=== PATIENT | male | born 1990 | race Caucasian/White ===

== ENCOUNTER 2023-11-23 06:48 | Emergency (ER) | payer OTHER ==
--- NOTE | 2023-11-23 07:03 | ED Physician Documentation ---
PD HPI ABD PAIN - Stated complaint Stated Complaint: LOWER BACK PX, - Chief complaint Chief Complaint: Abd Pain - History obtained from History obtained from: Patient - History of Present Illness Timing - onset: How many days ago (4) Timing - duration: Days (4) Timing - details: Gradual onset (with gradual increase. Initially thought it was muscular back pain, but not positional. Has worsened considerably since yesterday. Some worse with certain movements. Not improved with rest, heat, NSAIDs, muscle relaxants.), Constant Quality: Aching, Dull, Pain Location: Other (right upper lumbar area) Radiation: Other (moving to right low abd and some feeling of right testicular pain without tenderness to testicle.) Associated symptoms: Nausea, Other (he is now noting area of decreased sensation to touch right lower abd to anterior thigh without skin pain nor rash.). No: Fever, Vomiting, Diarrhea, Dysuria Review of Systems Constitutional: denies: Fever, Chills PD PAST MEDICAL HISTORY - Past Medical History Past Medical History: Yes Cardiovascular: Hypertension Other Past Medical History: cervical radiculopathy and lower back pain - Past Surgical History Ortho: Other HEENT: Tonsil/Adenoidectomy, Other - Present Medications Home Medications: Ambulatory Orders Medication Instructions Recorded Confirmed Fluoxetine HCl [Prozac] 30 mg PO DAILY 11/23/23 11/23/23 Gabapentin [Neurontin] 300 mg PO DAILY 11/23/23 11/23/23 Lidocaine Patch 5% [Lidoderm Patch] 1 patch TOP DAILY PRN #10 patch 11/23/23 Meloxicam [Mobic] 7.5 mg PO BID 10 Days #20 tablet 11/23/23 Oxycodone HCl/Acetaminophen 1 each PO Q6H PRN #20 tablet 11/23/23 [Oxycodone-Acetaminophn 7.5-325] dexAMETHasone [Decadron] 4 mg PO DAILY #5 tablet 11/23/23 methocarbamoL [Robaxin] 500 mg PO Q6H 11/23/23 11/23/23 tiZANidine [Zanaflex] 4 mg PO Q8H PRN #25 tablet 11/23/23 - Allergies Allergies/Adverse Reactions: Allergies Allergy/AdvReac Type Severity Reaction Status Date / Time erythromycin base AdvReac Nausea Verified 11/23/23 07:02 beta blockers AdvReac Unknown Uncoded 11/23/23 07:02 - Social History Does the pt smoke?: No Smoking Status: Never smoker Does the pt drink ETOH?: Yes Does the pt have substance abuse?: No - Immunizations Immunizations are current?: Yes PD ED PE NORMAL - General General: Alert and oriented X 3, Well developed/nourished, Other (appears in considerable pain.) - Cardiac Cardiac: RRR, No murmur - Respiratory Respiratory: No respiratory distress, Clear bilaterally - Abdomen Abdomen: Normal bowel sounds, Soft, Non distended, No organomegaly, Other (tender mildly right lateral abdomen lower aspect to around iliac creast. No CVA tender per se, with tender lower at about L1 level. No redness nor rash. No point focal tenderness. ) Results - Vitals Vitals: Vital Signs - 24 hr 11/23/23 11/23/23 11/23/23 06:57 09:02 10:00 Temperature 36.5 C 36.4 C L Heart Rate 90 58 L 60 Respiratory 16 15 15 Rate Blood Pressure 135/86 H 120/76 112/74 O2 Saturation 100 99 100 Oxygen O2 Source Room air - Labs Labs: Laboratory Tests 11/23/23 11/23/23 11/23/23 07:25 07:25 09:05 WBC 5.4 RBC 5.00 Hgb 14.2 Hct 43.7 MCV 87.4 MCH 28.4 MCHC 32.5 RDW 13.2 Plt Count 237 MPV 10.4 Neut # (Auto) 3.1 Lymph # (Auto) 1.3 L [place] # (Auto) 0.4 Eos # (Auto) 0.4 Baso # (Auto) 0.0 Absolute Nucleated RBC 0.00 Nucleated RBC % 0.0 Sodium 137 Potassium 3.7 Chloride 108 Carbon Dioxide 25 Anion Gap 4.0 L BUN 13 Creatinine 1.2 Estimated GFR (MDRD) 69 L Glucose 88 Calcium 9.4 Total Bilirubin 0.9 AST 21 ALT 23 Alkaline Phosphatase 70 Total Protein 6.6 Albumin 4.4 Globulin 2.2 Albumin/Globulin Ratio 2.0 Lipase 22 Urine Color YELLOW Urine Clarity CLEAR Urine pH 6.0 Ur Specific [place] 1.025 Urine Protein NEGATIVE Urine Glucose (UA) NEGATIVE Urine Ketones NEGATIVE Urine Occult Blood NEGATIVE Urine Nitrite NEGATIVE Urine Bilirubin NEGATIVE Urine Urobilinogen 0.2 (NORMAL) Ur Leukocyte Esterase NEGATIVE Ur Microscopic Review NOT INDICATED Urine Culture Comments NOT INDICATED - Rads (name of study) abd/pelvic CT Relevant Findings:: Prelim report reviewed (normal appendix. No kidney stones nor hydro. No other acute process. ), EMP independent interpretation of test PD Medical Decision Making - ED course Complexity details: reviewed results, re-evaluated patient (pain well improved with IV toradol and Dilaudid. More comfortable for now. ), considered differential (pain lower right back, upper lumbar area around now to right lower abd/inguinal area. No scrotal tenderness per pt. Seems nerve root L1 distribution but no rash nor sores after few days of increasing pain. ) ED course: Pt states 4 days of the pain, with gradual increase. Initially thought it was muscular back pain, but not positional. Has worsened considerably since yesterday. Some worse with certain movements. Not improved with rest, heat, NSAIDs, muscle relaxants. No tenderness focally in rightr back nor abd. Has pain in the areas increased some deeper with palpation. No rash nor sores. The area of tender is upper lumbar around to lower abd, iliac crest area. Not percussion nor rebound tenderness in abdomen. No guarding. Departure - Departure Disposition: 01 Home, Self Care Clinical Impression: Acute right flank pain, Right lumbar radiculitis Condition: Stable Record reviewed to determine appropriate education?: Yes Instructions: ED Flank Pain Uncertain Cause Follow-Up: VALENTÍN RM MD [Primary Care Provider] - Prescriptions: dexAMETHasone [Decadron] 4 mg PO DAILY #5 tablet Lidocaine Patch 5% [Lidoderm Patch] 1 patch TOP DAILY PRN #10 patch PRN Reason: pain Meloxicam [Mobic] 7.5 mg PO BID 10 Days #20 tablet Oxycodone HCl/Acetaminophen [Oxycodone-Acetaminophn 7.5-325] 1 each PO Q6H PRN #20 tablet PRN Reason: Pain 5-7 tiZANidine [Zanaflex] 4 mg PO Q8H PRN #25 tablet PRN Reason: Spasms Comments: Your CT scan did not show any acute abnormalities. In particular no signs of kidney stones or kidney inflammation. The spine appears normal without any obvious bony abnormalities nor notable disc protrusions. Urine test is without any signs of infection. Other blood tests are good as well. The CT scan report also comments normal appendix and vasculature and no other obvious abnormalities. The testing does eliminate some reasonable causes. Still left however would be conditions that would not be visible on the scan or blood/urine test. Of these muscular pain would still be a consideration or nerve root irritation "pinched nerve". At this point I think he would have a rash if it was from shingles though the character and distribution of it would fit. The area that you have decreased sensation would be compatible with the nerve root distribution, the first lumbar (L1). At this point I would assume treating it as a nerve irritation/musculoskeletal pain with a combination of anti-inflammatories of a steroid anti-inflammatory along with tizanidine muscle relaxant and some lidocaine patches. To that add acetaminophen 650 mg 4 times daily regularly. Add oxycodone 7.5 mg every 4-6 hours if needed for worse pain. Activity as tolerated. Heat and gentle stretching for the area. Follow-up if not improving well over the next several days and return if worse or new symptoms. As a new prescription to [facility]. I am prescribing a short course of narcotic pain medication for you. These are potentially dangerous and addictive medications that should be used carefully. These medications may constipate you. Take an [id number] stool softener such as docusate twice daily with plenty of water while taking these medications. If you go 24 hours without a bowel movement, take [id number] MiraLAX, per package instructions. Do not drink or drive while taking these medications. If you received narcotic or sedating medications while in the emergency department do not drive for 24 hours. Store this medication in a safe, secure place and out of reach of children. It is a violation of federal law to give or sell this medication to another person or to use in a manner other than prescribed. The ED will not refill narcotic prescriptions, including prescriptions lost or stolen. You can dispose of unwanted medications at the [facility]'s office or at several pharmacies such as [facility]. Forms: PCP List Discharge Date/Time: 11/23/23 10:05
[2023-11-23] MEDS: ONDANSETRON 4 MG/2 ML VIAL IVP STA (07:32)
[2023-11-23] MEDS: KETOROLAC 15 MG/ML VIAL IVP STA (07:32)
[2023-11-23] MEDS: HYDROmorphone 1 MG/ML CARPUJECT IVP STA (07:33)
[2023-11-23 07:41] LABS: BASOPHILS % (AUTO) 0.7 %; EOSINOPHILS # (AUTO) 0.4 10^3/uL (0.0-0.7); EOSINOPHILS % (AUTO) 7.3 %; HCT - HEMATOCRIT 43.7 % (42.0-52.0); HGB - HEMOGLOBIN 14.2 g/dL (14.0-18.0); LYMPHOCYTES # (AUTO) 1.3 10^3/uL (1.5-3.5); LYMPHOCYTES % (AUTO) 24.9 %; MEAN CORPUSCULAR HEMOGLOBIN 28.4 pg (27.0-31.0); MEAN CORPUSCULAR HGB CONC 32.5 g/dL (32.0-36.0); MEAN CORPUSCULAR VOLUME 87.4 fL (80.0-94.0); MEAN PLATELET VOLUME 10.4 fL (7.4-11.4); MONOCYTES # (AUTO) 0.4 10^3/uL (0.0-1.0); MONOCYTES % (AUTO) 8.2 %; NEUTROPHILS # (AUTO) 3.1 10^3/uL (1.5-6.6); NEUTROPHILS % (AUTO) 58.3 %; PLT - PLATELET COUNT 237 10^3/uL (130-450); RED CELL DISTRIBUTION WIDTH 13.2 % (12.0-15.0); WHITE BLOOD COUNT 5.4 x10^3/uL (4.8-10.8)
[2023-11-23 07:59] LABS: ALBUMIN 4.4 g/dL (3.2-5.5); BILIRUBIN,TOTAL 0.9 mg/dL (0.2-1.0); CALCIUM 9.4 mg/dL (8.5-10.3); CREATININE 1.2 mg/dL (0.6-1.3); POTASSIUM 3.7 mmol/L (3.5-4.5); TOTAL PROTEIN 6.6 g/dL (6.4-8.9)
[2023-11-23] MEDS ORDERED: iohexoL-300 100 ML VIAL ONE (08:27)
[2023-11-23] MEDS: iohexoL-300 100 ML VIAL IVP ONE (09:02)
--- NOTE | 2023-11-23 09:02 | CT Report ---
PROCEDURE: Abdomen/Pelvis W INDICATIONS: Abdominal pain, acute, nonlocalized CONTRAST: 100 ml omni 300 TECHNIQUE: After the administration of intravenous contrast, a CT scan of the abdomen and pelvis was performed. Images were recorded and evaluated at appropriate window settings. Reformats: coronal and sagittal. F or radiation dose reduction, the following was used: automated exposure control, adjustment of mA and /or kV according to patient size. COMPARISON: None. FINDINGS: Image quality: Diagnostic. Lower chest: Unremarkable. Liver: No solid mass. Mild diffuse hepatic steatosis.. Gallbladder: No radiopaque stones or wall thickening. Biliary tree: No intrahepatic or extrahepatic dilation, accounting for age. Spleen: No splenomegaly. Pancreas: No pancreatic ductal dilation. Adrenals: No adrenal nodule. Kidneys and ureters: No hydronephrosis. No renal cystic lesion which requires follow up. No solid mas s. Stomach, bowel and peritoneum: No gastric or small bowel dilation. No abnormal wall thickening. No pa thologic free fluid. Normal appendix. Moderate diffuse fecal load. Lymph nodes: No central or retroperitoneal adenopathy. Vessels: No infrarenal aortic aneurysm. Patent portal vein. PELVIS Reproductive organs: Unremarkable. Bladder: No abnormal wall thickening, accounting for underdistention. Pelvic lymph nodes: No pelvic adenopathy by size criteria. Bones: No aggressive osseous abnormality. Other: No significant ventral or inguinal hernia. IMPRESSION: 1. Normal appendix. No evidence of acute appendicitis. 2. No evidence acute abdominal process. 3. Moderate fecal debris. 4. Mild diffuse hepatic steatosis. Reviewed by: Maxwell Dixon MD on 11/23/2023 9:01 AM PDT Approved by: Maxwell Dixon MD on 11/23/2023 9:01 AM PDT Station ID: [id number]
[2023-11-23 09:18] LABS: BILIRUBIN,URINE NEGATIVE (NEGATIVE); GLUCOSE, URINE (UA) NEGATIVE (NEGATIVE); KETONES,URINE (UA) NEGATIVE (NEGATIVE); LEUKOCYTE ESTERASE, URINE NEGATIVE (NEGATIVE); NITRITE,URINE NEGATIVE (NEGATIVE); OCCULT BLOOD,URINE NEGATIVE (NEGATIVE); PROTEIN,URINE NEGATIVE (NEGATIVE); UROBILINOGEN,URINE 0.2 (NORMAL) E.U./dL (NORMAL)
[2023-11-23] MEDS: DEXAMETHASONE 10 MG/ML VIAL IVP STA (09:18)
[2023-11-23] MEDS: LIDOCAINE PATCH 5% TOP STA (09:18)
[2023-11-23 09:19] LABS: CLARITY,URINE CLEAR (CLEAR)
[2023-11-23] MEDS: oxyCODONE 5 MG TABLET PO STA (09:30)
[2023-11-23 10:41] VITALS: BP 112/74; O2SAT 100
== END 2023-11-23 10:05 | disposition home or self-care (01) ==
LOC: ED 06:48
DX: R10.9 Unspecified abdominal pain (principal); M54.16 Radiculopathy, lumbar region
CPT/HCPCS: 36415; 74177; 80053; 81003; 83690; 85025; 96374; 96375; 99284; 99285; A9270; J1170; Q9967; 81001; 87086